=== PATIENT | female | born 1955 | race Caucasian/White ===

== ENCOUNTER 2017-01-19 16:40 | Emergency (ER) | payer OTHER ==
[~2017-01-19] VITALS: Ht 171.4 cm; Wt 59.6 kg
[2017-01-19 16:42] VITALS: Ht 171.4 cm; Wt 59.6 kg
--- NOTE | 2017-01-19 16:43 | NUR ---
PROVIDER DR. CRUZ AT BEDSIDE FOR EXAM.
--- NOTE | 2017-01-19 16:45 | NUR ---
CT PT TO CT BY CART AT THIS TIME.
--- NOTE | 2017-01-19 16:51 | NUR ---
RETURN PT RETURNED FROM CT BY CART AT THIS TIME.
--- NOTE | 2017-01-19 17:01 | DI ---
Indication: ITS.REASON: R arm numbness PROCEDURE: CT HEAD W/O CONTRAST: Encounter: Initial Comparison: None Technique: Axial CT images through the head were performed without contrast. Iterative Reconstruction dose reducing technique was utilized. FINDINGS: The ventricles are of normal size, shape, and contour for the patient's age. There are scattered areas of low attenuation in the white matter which most likely represent changes from chronic microvascular ischemia. The brainstem, cerebellum, and cerebral hemispheres otherwise have a normal morphology and CT attenuation. There is no evidence of midline displacement. No hemorrhage, signs of acute territorial stroke, mass effect, mass lesions, or edema is evident. The visualized portions of the skull base, midface, and calvarium demonstrate no abnormality. The paranasal sinuses are well aerated and free of significant disease. The tympanic and mastoid cavities appear normal. IMPRESSION: No acute intracranial hemorrhage or extended infarct signs. .
--- NOTE | 2017-01-19 17:02 | NUR ---
TELE-NEURO DR. GARRISON TO ASSESS PT AT THIS TIME.
[2017-01-19 17:06] LABS: BASOPHILS % (AUTO) 0.3 % (0-2); EOSINOPHILS # (AUTO) 0.1 T/MM3 (0-0.5); HGB - HEMOGLOBIN 13.7 GM/DL (12-16); IMMATURE GRANULOCYTE # (AUTO) 0.01 T/MM3 (0.00-0.03); IMMATURE GRANULOCYTE % (AUTO) 0.2 % (0.0-0.5); LYMPHOCYTES % (AUTO) 52.5 % (23-45); MEAN CORPUSCULAR HGB CONC(MCHC 35.1 GM/DL (31-37); MEAN CORPUSCULAR VOLUME 88.2 UM3 (80-100); MEAN PLATELET VOLUME 10.3 UM3 (9.4-12.4); MONOCYTES # (AUTO) 0.5 T/MM3 (0-0.8); NEUTROPHILS #(AUTO)-ABSOLUTE 2.1 T/MM3 (1.8-7.7); RED BLOOD COUNT 4.42 M/MM3 (4.00-5.20); WBC - WHITE BLOOD COUNT 5.8 T/MM3 (4.5-11.0)
--- NOTE | 2017-01-19 17:06 | ERPDOC ---
Departure Disposition Decision Date: Jan 19, 2017 Disposition Decision Time: 17:49 Disposition: 07 AGAINST MEDICAL ADVICE Impression Impression Impression: Primary Impression: Tingling of right upper extremity Severity: Mild Condition: Improved Seen By: Physician only Referrals: TRAVIS TUCKER (PCP) [facility] Day Patient Instructions: Paresthesia (ED) Problems/Meds/Labs Reviewed?: Yes Medications reviewed and manag: Yes Follow up care ordered?: Yes Mental Status: Alert, Oriented HPI - General Medical General Chief Complaint: Neuro Symptoms/Deficits Stated Complaint: RIGHT ARM NUMBNESS/THROAT TIGHTNESS Time Seen by Provider: 16:46 Source: patient Exam Limitations: no limitations HPI - General Medical Initial Comments 61-year-old female presents to the emergency department with a chief complaint of tingling in her right arm. Patient denies any pain or discomfort. Patient noted onset of symptoms one hour prior to arrival to the emergency Department. Patient was at home when her symptoms began. Symptoms have improved in nature since onset. At the time of arrival to the emergency department symptoms have virtually resolved. She does not note any exacerbating or remitting factors. No other complaints or associated symptoms. She states she has a history of prior symptoms in the past secondary to anxiety. Occurred At: home Onset: Constant Allergies: Coded Allergies: No Known Allergies (Unverified , 01/19/17) Past History Past Medical History Pt denies signifigant PMH Metabolic: other Surgical History Denies Surgeries General: other Family History Family History: Negative Vaccines Hx Influenza Vaccination: Yes () Hx Pneumococcal Vaccination: No Social History Smoking Status: Never smoker Substance Use Type: does not use Alcohol Intake: none Review of Systems Constitutional Constitutional: DENIES: chills, fever Eyes General: DENIES: erythema, exudate Lids/Accessories: DENIES: erythema, swelling Vision: DENIES: acuity, blurring ENMT Ears: DENIES: drainage, erythema Hearing: DENIES: hearing loss Balance: DENIES: ataxia, falling to one side Sinuses: DENIES: congestion, pain Nose: DENIES: nosebleeds, pain Mouth/Throat: DENIES: painful swallowing, sore throat Teeth: DENIES: pain Jaw: DENIES: pain Cardiovascular Cardiac: DENIES: chest pain, dyspnea on exertion Rhythm/Rate: DENIES: irregular beat, palpitations Vascular: DENIES: pedal edema, unilateral swelling Pulmonary Respiratory: DENIES: cough, dyspnea, pleuritic chest pain, sputum GI Upper Abdomen: DENIES: nausea, pain, vomiting Lower Abdomen: DENIES: diarrhea, pain General: DENIES: dysuria, pain Musculoskeletal General: DENIES: joint pain, pain, tenderness Integumentary Skin: DENIES: itching, rash Neurological General: tingling, DENIES: headache, numbness, weakness Psychiatric Psychiatric: DENIES: emotional instability, suicidal ideation/attempt Endocrine Endocrine: DENIES: polydipsia, polyphagia Hematologic/Lymphatic Hematologic/Lymphatic: DENIES: frequent nosebleeds, lymphadenopathy Allergic/Immunological Allergic/Immunoligical: DENIES: allergic reactions, hives Physical Exam General General Nourishment: well nourished, well developed, appears stated age, no acute distress, adult General Body Habitus: well groomed Vitals and Pain First Documented Vital Signs Date Time Temp Pulse Resp B/P Pulse Ox O2 Delivery O2 Flow Rate FiO2 01/19/17 16:42 97.7 94 18 128/80 98 Room Air Weight: Kilograms: 59.600 Height (feet): 5 Height (inches): 7.50 Triage Pain Scale: RN VS reviewed by Provider: Yes Normal Exams: Head: Normocephalic w/o trauma Eyes: Pupils are PERRLA w/ EOMI, No scleral icterus, irritation, or foreign bodies noted ENMT: No facial trauma, nasal exudates, pharyngeal erythema, or exudates are noted Dental: No fractured, loose, or missing teeth noted Neck: Full range of motion, without adenopathy, JVD, bruits or thyromegaly Chest/Resp: Clear all portillo, with good airflow, and symmetry bilaterally CV: Regular rate and rhythm, without murmur or gallop, Pulses 2+ all extremities, capillary refill, <2 seconds all ext., no pedal edema noted Abdomen: Bowel sounds positive, soft, non-tender, non-distended, no hepatosplenomegaly, masses or bruits noted Lymphatic: No lymphadenopathy, or lymphedema noted Musculoskeletal: No tenderness, or deformity noted, good range of motion, all extremities Integumentary: No rashes, hives, or bruising noted, hair and nails, without abnormality Neurologic: Patient is alert, and oriented, cranial nerves, motor/sensory/ cerebellar, exams w/o gross deficits, to observation Psychiatric: Patient exhibits, appropriate attention, emotion and affect Neurologic (brief) Comments Alert and oriented x 4. CN 2-12. Strength normal. Sensation is intact. Gait normal. Normal motor. Normal coordination. Reflexes 2/4 in all extremities. Absent Babinski bilaterally. Normal gait. No focal neurologic deficit. Differential Diagnoses Considering: CVA, Metabolic, TIA, UTI Progress Results/Orders Orders Procedure Category Date Status Time Ct Head W/O Contrast CT 01/19/17 Resulted 16:46 Cbc W/Auto LAB 01/19/17 Complete Diff-Reflex Manual Cmp - Comprehensive LAB 01/19/17 Complete Metabolic Troponin I W LAB 01/19/17 Complete Hemolysis Index EKG EKG 01/19/17 Taken Chest 1 View RAD 01/19/17 Taken 16:46 Ua, Dip Wreflex LAB 01/19/17 Complete Microsc & Drop Hammer Operator Helper 16:46 INR LAB 01/19/17 Complete PTT LAB 01/19/17 Complete Iv Lock (Ed Only) EDM 01/19/17 Transmitted 17:26 Aspirin (Asa) PHA 01/20/17 Complete 09:00 Lab Results Laboratory Tests Test 01/19/17 16:46 01/19/17 17:00 01/19/17 17:30 Glucometer 96mg/dL White Blood Count 5.8T/MM3 Red Blood Count 4.42M/MM3 Hemoglobin 13.7GM/DL Hematocrit 39.0% Mean Corpuscular Volume 88.2UM3 Mean Corpuscular Hemoglobin 31.0UUG Mean Corpuscular Hemoglobin Concent 35.1GM/DL RDW Standard Deviation 40.1FL Platelet Count 177T/MM3 Mean Platelet Volume 10.3UM3 Immature Granulocyte % (Auto) 0.2% Neutrophils (%) (Auto) 37.0% Lymphocytes (%) (Auto) 52.5% Monocytes (%) (Auto) 9.0% Eosinophils (%) (Auto) 1.0% Basophils (%) (Auto) 0.3% Absolute Immature Granulocyte (auto 0.01T/MM3 Absolute Neutrophils (auto) 2.1T/MM3 Absolute Lymphocytes (auto) 3.0T/MM3 Absolute Monocytes (auto) 0.5T/MM3 Absolute Eosinophils (auto) 0.1T/MM3 Absolute Basophils (auto) 0.0T/MM3 Prothromb Time International Ratio 1.10 Activated Partial Thromboplast Time 30.4SEC Turbidity < 20 Sodium Level 140MEQ/L Potassium Level 4.4MEQ/L Chloride Level 107MEQ/L Carbon Dioxide Level 25MEQ/L Anion Gap 8MEQ/L Blood Urea Nitrogen 18.0MG/DL Creatinine 0.7MG/DL Glomerular Filtration Rate Calc 85 BUN/Creatinine Ratio 26RATIO Glucose Level 101MG/DL Calculated Osmolality 271MOSM/KG Calcium Level 9.6MG/DL Total Bilirubin 0.80MG/DL Icterus Index < 2 Aspartate Amino Transf (AST/SGOT) 32U/L Alanine Aminotransferase (ALT/SGPT) 32U/L Alkaline Phosphatase 82U/L Troponin I < 0.012ng/ml Total Protein 7.1G/DL Albumin 4.4G/DL Globulin 2.7G/DL Albumin/Globulin Ratio 1.6RATIO Chemistry Specimen Hemolysis 56 Urine Collection Type Cleancatch-midstream Urine Color Yellow Urine Turbidity Clear Urine pH 6.0 Urine Specific [place] <=1.005 Urine Protein Negative Urine Glucose (UA) Negative Urine Ketones Negative Urine Blood Negative Urine Nitrite Negative Urine Bilirubin Negative Urine Urobilinogen 0.2EU/DL Urine Leukocyte Esterase Negative Urinalysis Comment Microscopic not ind. Medications Current ED Medications Aspirin (ASA) 324 mg DAILY PO Last administered on 01/19/17t 17:49; Start 01/20 at 09:00; Stop 01/20/17 at 09:00; Status DC Progress Progress Labs/imaging were discussed in detail with the patient and questions are answered. Patient is given 324 mg of aspirin by mouth 1 after an unremarkable head CT is obtained. Patient is recommended to undergo admission to the hospital in observation status for further evaluation and treatment including the stroke workup. Patient declines. Patient requests to follow-up with her physician tomorrow. Patient requested the stroke workup as an outpatient. Patient requests to sign out from the emergency department AGAINST MEDICAL ADVICE. Patient is aware signing out AGAINST MEDICAL ADVICE could result in and/or permanent disability. Patient verbalizes agreement and understanding of this. Patient is alert and oriented 4. She is clinically sober. Patient's family is supportive of her decision. Patient signed the AMA form and leaves the emergency department at this time. Patient is aware that she may return to the emergency department any time if she changes her mind and wishes to be re-evaluated or if her condition worsens or changes in any manner. She is to return if her condition worsens or changes in any manner to the emergency department. She is to follow-up with her primary care physician Dr. Duque or [facility] tomorrow. She is to take a full dose aspirin on a daily basis until instructed otherwise by follow-up physician. Patient is not a TPA candidate due to a low NIH score and rapidly resolving symptoms. She was evaluated by tele-neurology Dr. More. EKG EKG : Rate: 60-100 Rhythm: sinus [place]: normal QRS: normal Intervals: normal ST/T: normal Interpreted by: signing physician Xray Xray : Xray: CXR Portable Interpretation: Normal, Interpreted by Me CT Date CT Interpreted for [place]: Jan 20, [address] Interpreted for Stroke: 16:57 CT : CT: Head no contrast Interpretation: Normal, Reviewed Written Report LEBRON CRUZ DO Jan 19, 2017 17:06
[2017-01-19 17:12] LABS: INR 1.1 (0.76-1.04); PTT 30.4 SEC (24-36)
[2017-01-19 17:16] LABS: ALBUMIN 4.4 G/DL (3.5-5.0); ALBUMIN/GLOBULIN RATIO 1.6 RATIO (1.1-2.2); ALKALINE PHOSPHATASE 82 U/L (38-126); ALT (SGPT) 32 U/L (9-52); ANION GAP 8 MEQ/L (5-15); AST (SGOT) 32 U/L (14-36); BUN/CREATININE RATIO 26 RATIO (6-26); CALCIUM 9.6 MG/DL (8.4-10.2); CHLORIDE 107 MEQ/L (98-107); CO2 - CARBON DIOXIDE 25 MEQ/L (22-30); CREATININE 0.7 MG/DL (0.7-1.2); GLOMERULAR FILTRATION RATE 85; GLUCOSE 101 MG/DL (65-110); POTASSIUM 4.4 MEQ/L (3.6-5); SODIUM 140 MEQ/L (134-144); TOTAL PROTEIN 7.1 G/DL (6.3-8.2)
[2017-01-19] MEDS ORDERED: NO ROUTINE MEDS (17:16)
--- NOTE | 2017-01-19 17:33 | NUR ---
XRAY PORTABLE XRAY AT BEDSIDE.
[2017-01-19 17:39] LABS: BLOOD, URINE NEGATIVE (NEGATIVE); COLOR,URINE YELLOW (YELLOW); LEUKOCYTE ESTERASE ,URINE NEGATIVE (NEGATIVE); NITRITE,URINE NEGATIVE (NEGATIVE); UROBILINOGEN,URINE 0.2 EU/DL (NORMAL)
[2017-01-19 18:04] VITALS: BP 116/68; PULSE 74; RESP 15; TEMP 97.7; O2SAT 97
--- NOTE | 2017-01-19 18:04 | NUR ---
DISCHARGE WRITTEN INSTRUCTIONS REVIEWED AND SENT WITH PT. PT ADVISED TO F/U WITH PCP TOMORROW AND RETURN TO ER WITH RETURNING SYMPTOMS. PT VERBALIZES UNDERSTANDING OF DI, DENIES QUESTIONS. PT AMBULATES OUT OF ER WITH STEADY GAIT ACCOMP BY SPOUSE AT THIS TIME.
--- NOTE | 2017-01-20 07:01 | HPF ---
This is a 61-year-old female who comes in with complaints of numbness of her right arm as well as a swelling sensation of her chest. The patient has never previously had any stroke. The patient does not have any vascular disease. She does not take medications. The patient states that her symptoms are improving. She denies any difficulty with headache, difficulty with visual disturbance or diplopia or weakness of the arm or weakness of the leg on either side. The patient had a noncontrast head CT which was unremarkable. The patient has never had similar symptoms before. The patient does not have a history of headache syndrome. The patient's past medical history is as described. The patient had an NIH stroke scale score completed. She scored a 0 on her NIH stroke scale score. IMPRESSION This is a 61-year-old with minimal vascular risk factors. A TIA is possible in this patient, however unlikely given her absence of risk factors. The patient's other symptoms of throat tightness and other systemic symptoms make it seem that it is more likely that patient is having a panic attack or anxiety of some nature and not suggestive of ischemic infarction. The patient may benefit from MRI of the brain for further clarity. If the MRI of the brain does not result in evidence of ischemic changes, the patient may continue to be worked up as an outpatient. Also, a detailed examination should take place to make sure the sensory symptoms are not peripheral in nature which has been difficult to assess through teleneurology. SHALINI
--- NOTE | 2017-01-20 08:03 | DI ---
Indication: ITS.REASON: R arm numbness PROCEDURE: CHEST 1 VIEW: Encounter: Initial Comparison: June 19, 2011 FINDINGS: The lungs are clear. There is no abnormal airspace opacity, pleural effusion or pneumothorax identified. The heart size, pulmonary vasculature and mediastinum are within normal limits. No significant skeletal abnormality is seen. IMPRESSION: No acute cardiopulmonary abnormality. .
[2017-01-20] MEDS ORDERED: ASPIRIN 81 MG CHEWABLE TABLET PO SCH (09:00)
== END 2017-01-19 18:04 | disposition left against medical advice (07) ==
LOC: ED 16:40
DX: R20.2 Paresthesia of skin (principal); R09.89 Other specified symptoms and signs involving the circulatory and respiratory systems
CPT/HCPCS: 80053; 81003; 82948; 84484; 85025; 85610; 85730; 93005

== ENCOUNTER 2017-02-08 18:25 | Observation (INO) | payer OTHER ==
[~2017-02-08] VITALS: Ht 170.2 cm; Wt 59.2 kg
[~2017-02-08 18:25] MED LIST: NO ROUTINE MEDS
--- OUTSIDE RECORDS SUMMARY | 2017-02-08 18:30 | XMS REPORT | Continuity of Care Document ---
Author Author [facility] Organization [facility] Address Unknown Phone Unavailable Care Team Providers Care Masonry Instructor Name Role Phone HANY MURO DO Primary Care Physician [phone] Insurance Providers Guarantor Debi Mcdonnell Address [address] [place] [address] Email DENIED01-19-17 Payer [facility] Healthcare Policy Number [id number] Subscriber's Name BaldemarDebi Sanz Relationship 18 Self Group Number [id number] Chief Complaint and Reason for Visit Chief Complaint Neuro Symptoms/Deficits Reason for Visit Tingling of right upper extremity Problems Past Problems Medical Problem Onset Date Tingling of right upper extremity Unknown Medications Current Home Medications Medication Dose Units Route Directions Days Qty Instructions Start Date No Routine Meds 01/19/17 Social History Social History Problem Response Recorded Date/Time Onset Date Status Chewing Tobacco Status No 01/19/2017 5:19pm Not Applicable Not Applicable Hx Substance Use No 01/19/2017 5:19pm Not Applicable Not Applicable Hx Alcohol Use No 01/19/2017 5:19pm Not Applicable Not Applicable Query Response Start Date Stop Date Smoking Status Current every day smoker Hospital Discharge Instructions No hospital discharge instructions. Plan of Care Discharge Date 01/19/17 6:04pm Disposition 07 AGAINST MEDICAL ADVICE Condition at Discharge Improved Instructions/Education Provided Paresthesia (ED) Prescriptions See Medication Section Referrals TRAVIS TUCKER Address: [address] [place] [address] Note: [facility] Order Date: 1 Day Care Plan and Goals Physician Care Plan Problem: Tingling RUE Goal: Follow up with primary care provider Instructions: Take medications and follow care plan as discussed/written Functional Status No functional status results. Allergies, Adverse Reactions, Alerts No known allergies. Immunizations Query Response on File Recorded Date/Time Hx Influenza Vaccination Y 06/21/11 7:22am Hx Pneumococcal Vaccination No 06/21/11 7:22am Hx Influenza Vaccination Y 06/21/11 7:22am Influenza Vaccine Hx 08/201601/19/17 5:19pm Vital Signs Acute Vital Signs Vital Response Date/Time Temperature (Fahrenheit) 97.7 deg F (96.8 - 99.1) 01/19/2017 6:04pm Temperature (Calculated Celsius) 36.73723 degrees C (36.0 - 37.3) 01/19/2017 6:04pm Pulse Rate (adult) 74 bpm (60 - 100) 01/19/2017 6:04pm Respiratory Rate 15 breaths/min (10 - 20) 01/19/2017 6:04pm O2 Sat by Pulse Oximetry 97 % (90 - 100) 01/19/2017 6:04pm Blood Pressure 116/68 mm Hg 01/19/2017 6:04pm Height (Feet) 5 feet 01/19/2017 4:42pm Height (Inches) 7.50 inches 01/19/2017 4:42pm Weight (Kilograms) 59.600 kg 01/19/2017 4:42pm Body Mass Index (BMI) 20.0 01/19/2017 4:42pm Results Laboratory Results Test Name Result Units Flags Reference Collection Date/Time Result Date/ Time Comments White Blood Count 5.8 T/MM3 4.5-11.0 01/19/2017 5:00pm 01/19/2017 5: 06pm Red Blood Count 4.42 M/MM3 4.00-5.20 01/19/2017 5:00pm 01/19/2017 5: 06pm Hemoglobin 13.7 GM/DL 12-16 01/19/2017 5:00pm 01/19/2017 5:06pm Hematocrit 39.0 % 36-46 01/19/2017 5:00pm 01/19/2017 5:06pm Mean Corpuscular Volume 88.2 UM3 80-100 01/19/2017 5:00pm 01/19/2017 5: 06pm Mean Corpuscular Hemoglobin 31.0 UUG 26-34 01/19/2017 5:00pm 2016 5:06pm Mean Corpuscular Hemoglobin Concent 35.1 GM/DL 31-37 01/19/2017 5:00pm 01/19/2017 5:06pm RDW Standard Deviation 40.1 FL 36.9-50.2 01/19/2017 5:00pm 01/19/2017 5 :06pm Platelet Count 177 T/MM3 130-400 01/19/2017 5:00pm 01/19/2017 5:06pm Mean Platelet Volume 10.3 UM3 9.4-12.4 01/19/2017 5:00pm 01/19/2017 5: 06pm Neutrophils (%) (Auto) 37.0 % 33-66 01/19/2017 5:00pm 01/19/2017 5: 06pm Lymphocytes (%) (Auto) 52.5 % H 23-45 01/19/2017 5:00pm 01/19/2017 5: 06pm Monocytes (%) (Auto) 9.0 % 0-9.0 01/19/2017 5:00pm 01/19/2017 5:06pm Eosinophils (%) (Auto) 1.0 % 0-4 01/19/2017 5:00pm 01/19/2017 5:06pm Basophils (%) (Auto) 0.3 % 0-2 01/19/2017 5:00pm 01/19/2017 5:06pm Immature Granulocyte % (Auto) 0.2 % 0.0-0.5 01/19/2017 5:00pm 2016 5:06pm Absolute Neutrophils (auto) 2.1 T/MM3 1.8-7.7 01/19/2017 5:00pm 2016 5:06pm Absolute Lymphocytes (auto) 3.0 T/MM3 1-4.8 01/19/2017 5:00pm 2016 5:06pm Absolute Monocytes (auto) 0.5 T/MM3 0-0.8 01/19/2017 5:00pm 01/19/2017 5:06pm Absolute Eosinophils (auto) 0.1 T/MM3 0-0.5 01/19/2017 5:00pm 2016 5:06pm Absolute Basophils (auto) 0.0 T/MM3 0-0.2 01/19/2017 5:00pm 01/19/2017 5:06pm Absolute Immature Granulocyte (auto 0.01 T/MM3 0.00-0.03 01/19/2017 5: 00pm 01/19/2017 5:06pm Prothromb Time International Ratio 1.10 H 0.76-1.04 01/19/2017 5:00pm 01/19/2017 5:12pm THERAPUTIC RANGE=2.00-3.00 FOR ANTI-THROMBOSIS THERAPUTIC RANGE=2.50-3.50 FOR IMPLANTED VALVE Activated Partial Thromboplast Time 30.4 SEC 24-36 01/19/2017 5:00pm 5:12pm Icterus Index < 2 0-7 01/19/2017 5:00pm 01/19/2017 5:16pm Chemistry Specimen Hemolysis 56 H 0-25 01/19/2017 5:00pm 01/19/2017 5: 16pm 26-70: Specimen Exhibited Slight Hemolysis - can falsely elevate K (Potassium) and Urine Protein. Turbidity < 20 0-20 01/19/2017 5:00pm 01/19/2017 5:16pm Sodium Level 140 MEQ/L 134-144 01/19/2017 5:00pm 01/19/2017 5:16pm Potassium Level 4.4 MEQ/L 3.6-5 01/19/2017 5:00pm 01/19/2017 5:16pm Chloride Level 107 MEQ/L 98-107 01/19/2017 5:00pm 01/19/2017 5:16pm Carbon Dioxide Level 25 MEQ/L 22-30 01/19/2017 5:00pm 01/19/2017 5: 16pm Anion Gap 8 MEQ/L 5-15 01/19/2017 5:00pm 01/19/2017 5:16pm Blood Urea Nitrogen 18.0 MG/DL H 7-17 01/19/2017 5:00pm 01/19/2017 5: 16pm Creatinine 0.7 MG/DL 0.7-1.2 01/19/2017 5:00pm 01/19/2017 5:16pm BUN/Creatinine Ratio 26 RATIO 6-26 01/19/2017 5:00pm 01/19/2017 5:16pm Glomerular Filtration Rate Calc 85 01/19/2017 5:00pm 01/19/2017 5: 16pm Glucose Level 101 MG/DL 65-110 01/19/2017 5:00pm 01/19/2017 5:16pm Calculated Osmolality 271 MOSM/KG 261-280 01/19/2017 5:00pm 01/19/2017 5:16pm Calcium Level 9.6 MG/DL 8.4-10.2 01/19/2017 5:00pm 01/19/2017 5:16pm Total Bilirubin 0.80 MG/DL 0.20-1.30 01/19/2017 5:00pm 01/19/2017 5: 16pm Alkaline Phosphatase 82 U/L 38-126 01/19/2017 5:00pm 01/19/2017 5:16pm Total Protein 7.1 G/DL 6.3-8.2 01/19/2017 5:00pm 01/19/2017 5:16pm Albumin 4.4 G/DL 3.5-5.0 01/19/2017 5:00pm 01/19/2017 5:16pm Globulin 2.7 G/DL 2.4-3.6 01/19/2017 5:00pm 01/19/2017 5:16pm Albumin/Globulin Ratio 1.6 RATIO 1.1-2.2 01/19/2017 5:00pm 01/19/2017 5 :16pm Aspartate Amino Transf (AST/SGOT) 32 U/L 14-36 01/19/2017 5:00pm 2016 5:16pm Alanine Aminotransferase (ALT/SGPT) 32 U/L 9-52 01/19/2017 5:00pm 01/19 5:16pm Troponin I < 0.012 ng/ml 0-0.12 01/19/2017 5:00pm 01/19/2017 5:27pm Troponin values with a difference of 55% increase from orginal troponin value represent a true biological DELTA value. (%increase Calc=Orginal Troponin value, divided by subsequent Troponin value, multiplied by 100) Urine Collection Type CLEANCATCH-MIDSTREAM 01/19/2017 5:30pm 2016 5:39pm Urine Color YELLOW YELLOW 01/19/2017 5:30pm 01/19/2017 5:39pm Urine Turbidity CLEAR CLEAR 01/19/2017 5:30pm 01/19/2017 5:39pm Urine Specific [place] <=1.005 L 1.015-1.025 01/19/2017 5:30pm 2016 5:39pm Urine pH 6.0 5.0-8.0 01/19/2017 5:30pm 01/19/2017 5:39pm Urine Leukocyte Esterase NEGATIVE NEGATIVE 01/19/2017 5:30pm 2016 5:39pm Urine Nitrite NEGATIVE NEGATIVE 01/19/2017 5:30pm 01/19/2017 5:39pm Urine Protein NEGATIVE NEGATIVE 01/19/2017 5:30pm 01/19/2017 5:39pm Urine Glucose (UA) NEGATIVE NEGATIVE 01/19/2017 5:30pm 01/19/2017 5: 39pm Urine Ketones NEGATIVE NEGATIVE 01/19/2017 5:30pm 01/19/2017 5:39pm Urine Urobilinogen 0.2 EU/DL NORMAL 01/19/2017 5:30pm 01/19/2017 5: 39pm Urine Bilirubin NEGATIVE NEGATIVE 01/19/2017 5:30pm 01/19/2017 5: 39pm Urine Blood NEGATIVE NEGATIVE 01/19/2017 5:30pm 01/19/2017 5:39pm Urinalysis Comment MICROSCOPIC NOT IND. 01/19/2017 5:30pm 2016 5:39pm Glucometer 96 mg/dL 65-110 01/19/2017 4:46pm 01/19/2017 4:52pm Name: DEBI MCDONNELL Unit #: [id number] : 1955 Sex: F Admit Date: Loc / Svc: ED Discharge Date: DIAGNOSTIC IMAGING REPORT Report #: [id number] [facility] [place] Indication: ITS.REASON: R arm numbness PROCEDURE: CT HEAD W/O CONTRAST: Encounter: Initial Comparison: None Technique: Axial CT images through the head were performed without contrast. Iterative Reconstruction dose reducing technique was utilized. FINDINGS: The ventricles are of normal size, shape, and contour for the patient's age. There are scattered areas of low attenuation in the white matter which most likely represent changes from chronic microvascular ischemia. The brainstem, cerebellum, and cerebral hemispheres otherwise have a normal morphology and CT attenuation. There is no evidence of midline displacement. No hemorrhage, signs of acute territorial stroke, mass effect, mass lesions, or edema is evident. The visualized portions of the skull base, midface, and calvarium demonstrate no abnormality. The paranasal sinuses are well aerated and free of significant disease. The tympanic and mastoid cavities appear normal. IMPRESSION: No acute intracranial hemorrhage or extended infarct signs. . Procedures No known history of procedures. Encounters Encounter Location Arrival/Admit Date Discharge/Depart Date Attending Provider Departed Emergency Room [facility] 01/19/17 4:40pm 01/19/17 6: 04pm LEBRON CRUZ DO Recent Diagnosis
[2017-02-08] MEDS ORDERED: NORMAL SALINE 1,000 ML IV ONE (18:46)
[2017-02-08] MEDS: NITROGLYCERIN 0.4 MG SUBLINGUAL TABLET SL PRN ×2 (18:47→18:52)
--- NOTE | 2017-02-08 18:50 | ERPDOC ---
Departure Disposition Decision Date: Feb 08, 2017 Disposition Decision Time: 19:40 Disposition: 02 TO [place] [facility] [place] Impression Impression: Primary Impression: Paresthesia Severity: Mild Condition: Improved Seen By: Physician only Referrals: HANY MURO DO (PCP) Problems/Meds/Labs Reviewed?: Yes Medications reviewed and manag: Yes Follow up care ordered?: Yes Mental Status: Alert, Oriented HPI - Cardiac General Chief Complaint: Cardiac Complaint Stated Complaint: TINGLING ALL OVER BODY Time Seen by Provider: 18:26 Source: patient, family Exam Limitations: no limitations HPI - Cardiac General Initial Comments 61yo woman presents to the ER tonight with paresthesias. Pt began to have paresthesias several weeks ago. They initially started on her right side. Pt was seen in this ER 3 weeks ago; she was evaluated as a TIA/evolving CVA. Pt was admitted to the hospital for further obs/work up, but left AMA prior to being transferred from the ER. Pt has followed up with her PCM and has further evaluation scheduled for later this week. Today, pts paresthesias became worse than they have been previously, are present across her chest and into both arms , and are accompanied by a globus sensation. Pt takes ibuprofen occasionally, but no other medications. Smokes 1ppd+ for the last 40+ years. Occurred At: home Onset/Timing: Gradual, Getting worse Duration: other Pain/Severity Scale: Now & Worst: 6/10 Severity: moderate Location: substernal Activities at Onset/Context: activity Prior CP/Workup: no prior cardiac workup Modifying Factors: IMPROVES WITH: lying down, nitroglycerin, rest, WORSE WITH: movement Nitro Today/Relief: 0.4 mg x 2, provided by ED Aspirin Today: 81 mg x 4, provided by ED Associated Symptoms: other, shortness of breath, weakness, DENIES: chest pain, cough, diaphoresis, fever/chills, headaches, loss of appetite, malaise, nausea/ vomiting, rash, seizure, syncope Hx of Similar Symptoms: Yes Allergies: Coded Allergies: No Known Allergies (Unverified , 01/19/17) Past History Past Medical History Pt denies signifigant PMH Metabolic: other Surgical History Denies Surgeries General: other Vaccines Hx Influenza Vaccination: Yes () Hx Pneumococcal Vaccination: No Social History Substance Use Type: does not use Alcohol Intake: none Review of Systems ENMT Mouth/Throat: other (globus) Neurological General: tingling All other Systems All Other Systems: Reviewed and Negative Physical Exam General General Nourishment: well nourished, well developed, appears stated age, no acute distress, adult General Body Habitus: well groomed Vitals and Pain First Documented Vital Signs Date Time Temp Pulse Resp B/P Pulse Ox O2 Delivery O2 Flow Rate FiO2 02/08/17 18:26 98.2 99 18 174/85 99 Room Air Weight: Kilograms: Height (feet): 5 Height (inches): 7.50 Triage Pain Scale: RN VS reviewed by Provider: Yes Normal Exams: Head: Normocephalic w/o trauma Eyes: Pupils are PERRLA w/ EOMI, No scleral icterus, irritation ENMT: No facial trauma, nasal exudates, pharyngeal erythema Neck: Full range of motion, without adenopathy, JVD Lymphatic: No lymphadenopathy Musculoskeletal: No tenderness, or deformity noted Integumentary: No rashes, hives, or bruising noted Neurologic: Patient is alert, and oriented Psychiatric: Patient exhibits, appropriate attention Respiratory (brief) Respiratory: FOUND: clear all portillo, equal bilaterally, symmetrical, NOT FOUND : rales, wheezes Cardiovascular (brief) Cardiac: FOUND: regular rate, regular rhythm, NOT FOUND: click, gallop, murmur , pedal edema, peripheral edema, rub Capillary Refill: <2 sec Pulses: all distal extremities, equal, strong Abdomen (brief) Abdominal Brief: FOUND: bowel normo active x4, soft, NOT FOUND: distended, hepatosplenomegaly, pulsatile mass, tender Differential Diagnoses Considering: Acute IN, Anxiety/Panic, Angina, Aortic Dissection, Atrial Fibrillation, CHF, Heart Block, Hyperventilation, Pericarditis, PSVT, Pulmonary Edema, Pulmonary Embolus Progress Results/Orders Orders Procedure Category Date Status Time Cbc W/Auto LAB 02/08/17 Complete Diff-Reflex Manual 18:46 Cmp - Comprehensive LAB 02/08/17 Complete Metabolic 18:46 Probnp LAB 02/08/17 Complete 18:46 Troponin I W LAB 02/08/17 Complete Hemolysis Index 18:46 INR LAB 02/08/17 Complete 18:46 Ethanol LAB 02/08/17 Complete 18:46 Ua, Dip Wreflex LAB 02/08/17 Complete Microsc & Lna 18:46 D-Dimer LAB 02/08/17 Complete 18:46 Tsh - Thyroid Stim LAB 02/08/17 Complete Hormone 18:46 Magnesium LAB 02/08/17 Complete 18:46 EKG EKG 02/08/17 Taken 18:46 Chest 1 View RAD 02/08/17 Taken 18:46 Iv Lock (Ed Only) EDM 02/08/17 Transmitted 18:46 Normal Saline (Normal PHA 02/08/17 Complete Saline Iv) 18:46 Aspirin (Asa) PHA 02/08/17 Complete 19:00 Nitroglycerin PHA 02/08/17 In Process (Nitrostat) 19:00 Place In Facility: ED ADM 02/08/17 Transmitted Lab Results Laboratory Tests Test 02/08/17 18:42 02/08/17 19:13 White Blood Count 5.6T/MM3 Red Blood Count 4.50M/MM3 Hemoglobin 13.7GM/DL Hematocrit 39.6% Mean Corpuscular Volume 88.0UM3 Mean Corpuscular Hemoglobin 30.4UUG Mean Corpuscular Hemoglobin Concent 34.6GM/DL RDW Standard Deviation 40.4FL Platelet Count 186T/MM3 Mean Platelet Volume 10.4UM3 Immature Granulocyte % (Auto) 0.0% Neutrophils (%) (Auto) 51.0% Lymphocytes (%) (Auto) 40.2% Monocytes (%) (Auto) 8.0% Eosinophils (%) (Auto) 0.4% Basophils (%) (Auto) 0.4% Absolute Immature Granulocyte (auto 0.00T/MM3 Absolute Neutrophils (auto) 2.9T/MM3 Absolute Lymphocytes (auto) 2.3T/MM3 Absolute Monocytes (auto) 0.5T/MM3 Absolute Eosinophils (auto) 0.0T/MM3 Absolute Basophils (auto) 0.0T/MM3 Prothromb Time International Ratio 1.06 D-Dimer < 150NG/ML Turbidity < 20 Sodium Level 147MEQ/L Potassium Level 4.2MEQ/L Chloride Level 109MEQ/L Carbon Dioxide Level 24MEQ/L Anion Gap 14MEQ/L Blood Urea Nitrogen 12.0MG/DL Creatinine 0.7MG/DL Glomerular Filtration Rate Calc 85 BUN/Creatinine Ratio 17RATIO Glucose Level 93MG/DL Calculated Osmolality 282MOSM/KG Calcium Level 9.9MG/DL Magnesium Level 2.2MG/DL Total Bilirubin 0.80MG/DL Icterus Index < 2 Aspartate Amino Transf (AST/SGOT) 31U/L Alanine Aminotransferase (ALT/SGPT) 29U/L Alkaline Phosphatase 75U/L Troponin I < 0.012ng/ml DV-Vfq-M-Type Natriuretic Peptide 93PG/ML Total Protein 7.4G/DL Albumin 4.6G/DL Globulin 2.8G/DL Albumin/Globulin Ratio 1.6RATIO Thyroid Stimulating Hormone (TSH) 1.02MIU/L Chemistry Specimen Hemolysis 78 Alcohol, Quantitative <10MG/DL Urine Collection Type Cleancatch-midstream Urine Color Yellow Urine Turbidity Clear Urine pH 5.5 Urine Specific [place] <=1.005 Urine Protein Negative Urine Glucose (UA) Negative Urine Ketones Negative Urine Blood Trace-intact Urine Nitrite Negative Urine Bilirubin Negative Urine Urobilinogen 0.2EU/DL Urine Leukocyte Esterase Trace Urinalysis Comment Microscopic not ind. Medications Current ED Medications Sodium Chloride (Normal Saline IV) 1,000 ml @ 0 mls/hr Q0M ONCE IV Last administered on 02/08/17 19:14; Start 02/08/17 at 18:46; Stop 02/08/17 at 18:47 ; Status DC Aspirin (ASA) 324 mg O ONCE PO Last administered on 02/08/17 18:35; Start at 19:00; Stop 02/08/17 at 19:01; Status DC Nitroglycerin (Nitrostat) 0.4 mg Q5MIN PRN SL CHEST PAIN Last administered on 18:52; Start 02/08/17 at 19:00 EKG EKG : Rate: 60-100 Rhythm: sinus [place]: normal QRS: normal Intervals: normal ST/T: depressed, non-specific changes (ST depression in II, III, aVF, and V4 -5. Borderline pos ST depression (~1mm)) Interpreted by: signing physician Consult/PCP Consult/PCP : Physician Contacted: Ronny Telemed Time Called: 19:31 Time of first response: 19:37 Type of discussion: Phone Consult/PCP Discussion Details Discussed ER course and lab/rad findings to this point. Due to duration of sx, improvement with ACS protocol, and EKG changes, will admit for obs and CP r/o. SCOOTER FUENTES DO Feb 08, 2017 18:50
[2017-02-08 18:53] LABS: BASOPHILS % (AUTO) 0.4 % (0-2); EOSINOPHILS % (AUTO) 0.4 % (0-4); HCT - HEMATOCRIT 39.6 % (36-46); HGB - HEMOGLOBIN 13.7 GM/DL (12-16); LYMPHOCYTES # (AUTO) 2.3 T/MM3 (1-4.8); LYMPHOCYTES % (AUTO) 40.2 % (23-45); MEAN CORPUSCULAR HGB 30.4 UUG (26-34); MEAN CORPUSCULAR HGB CONC(MCHC 34.6 GM/DL (31-37); MEAN PLATELET VOLUME 10.4 UM3 (9.4-12.4); MONOCYTES # (AUTO) 0.5 T/MM3 (0-0.8); NEUTROPHILS #(AUTO)-ABSOLUTE 2.9 T/MM3 (1.8-7.7); WBC - WHITE BLOOD COUNT 5.6 T/MM3 (4.5-11.0)
[2017-02-08 18:57] LABS: INR 1.06 (0.76-1.04); PROTHROMBIN TIME 11.5 SEC (9.31-12.49)
[2017-02-08 18:58] LABS: ALBUMIN 4.6 G/DL (3.5-5.0); ALBUMIN/GLOBULIN RATIO 1.6 RATIO (1.1-2.2); ALKALINE PHOSPHATASE 75 U/L (38-126); ALT (SGPT) 29 U/L (9-52); ANION GAP 14 MEQ/L (5-15); AST (SGOT) 31 U/L (14-36); BUN/CREATININE RATIO 17 RATIO (6-26); CALCIUM 9.9 MG/DL (8.4-10.2); CHLORIDE 109 MEQ/L (98-107); CO2 - CARBON DIOXIDE 24 MEQ/L (22-30); CREATININE 0.7 MG/DL (0.7-1.2); GLOMERULAR FILTRATION RATE 85; GLUCOSE 93 MG/DL (65-110); MAGNESIUM 2.2 MG/DL (1.6-2.3); POTASSIUM 4.2 MEQ/L (3.6-5); SODIUM 147 MEQ/L (134-144); TOTAL PROTEIN 7.4 G/DL (6.3-8.2)
[2017-02-08] MEDS ORDERED: ASPIRIN 81 MG CHEWABLE TABLET PO ONE (19:00)
[2017-02-08 19:02] LABS: ETHANOL <10 MG/DL (<10)
--- NOTE | 2017-02-08 19:03 | NUR ---
PORTABLE XRAY PORTABLE XRAY IN ROOM
[2017-02-08 19:10] LABS: PROBNP 93 PG/ML (0-175)
[2017-02-08 19:26] LABS: BLOOD, URINE TRACE-INTACT (NEGATIVE); COLOR,URINE YELLOW (YELLOW); LEUKOCYTE ESTERASE ,URINE TRACE (NEGATIVE); NITRITE,URINE NEGATIVE (NEGATIVE); UROBILINOGEN,URINE 0.2 EU/DL (NORMAL)
[2017-02-08 19:28] LABS: THYROID STIM HORMONE-TSH 1.02 MIU/L (0.47-4.68)
[2017-02-08] MEDS ORDERED: ONDANSETRON 4mg/2ml INJECTION IV PRN (20:00)
[2017-02-08] MEDS ORDERED: PROMETHAZINE 25 MG INJECTION IV PRN (20:00)
[2017-02-08] MEDS ORDERED: MILK OF MAGNESIA 30 ML SUSP PO PRN (20:00)
[2017-02-08] MEDS ORDERED: MORPHINE SULFATE 2 MG SYRINGE IV PRN (20:00)
[2017-02-08] MEDS ORDERED: METOCLOPRAMIDE 10mg/2ml INJECTION IV PRN (20:00)
--- NOTE | 2017-02-08 20:00 | NUR ---
PLACE IN FACILITY OC, PATIENT TO GO TO ROOM 139, OC RN
--- NOTE | 2017-02-08 20:12 | NUR ---
admit status ambulates from w/c to bed. Denies dizziness as up. States feels like "When your feet or asleep" all over my body from head to toe. Denies pain. Alert and cooperative throughout admission process.
--- NOTE | 2017-02-08 20:12 | NUR ---
DEPART/ADMIT PATIENT TRANSFERRED TO 139. REPORT TO KAMILA RENAE. CARES RELEASED.
[2017-02-08 20:20] VITALS: BP 116/72; PULSE 69; RESP 20; TEMP 96.8; O2SAT 100
[2017-02-08 20:37] VITALS: Ht 170.2 cm; Wt 59.2 kg
--- NOTE | 2017-02-08 21:00 | NUR ---
Dr. Alegre w/ Dr. Leahy per telemed screen. Questions answered, plan of care explained
--- NOTE | 2017-02-08 21:56 | HPPDOC ---
AZ BRIONES MD 02/08/17 2008: HPI - Adult Date DATE: 02/08/17 TIME: 20:04 General Chief Complaint: paresthesias in arm and chest, sensation in neck History of Present Illness Very pleasant 61-year-old female presents to the emergency room with worsening head and neck sensation and paresthesias down both her arms. She has a hard time describing what her symptoms are, she describes something coming over her head, almost a sleepiness, and a fullness in her neck and numbness tingling going down both her arms. She denies any focal weakness on one side or the other. She denies any speech or vision changes. She denies nausea or vomiting. She has been mildly anorexic and she thinks perhaps she's lost 4-5 pounds unintentionally over the past month or so. She presented to the emergency room today because her symptoms were worsening and she was worried. She been seen previously this month in the emergency room , was offered an admission for expedited workup but refused and stated she wanted to follow up with her primary care physician. she says her symptoms have never totally resolved.She did (her PCP is Dr. Dang) who had ordered some tests for this week, sounds like he ordered a mammogram and possibly a CT of her chest (?) However her symptoms increased, and so she did not make those tests yet which were scheduled for tomorrow and Tuesday. In the emergency room was noted that her EKG showed some inferior lateral ST depression, she received an aspirin and nitroglycerin and is feeling a little bit better though her symptoms do still persists somewhat. In the head to toe review of systems of at least 10 points, she notes the weight loss, she's not been eating all that much. She does have some night sweats but that's been going on a long time and she thinks that's from menopause. She says she wakes up a lot, but doesn't think that she snores, loose diarrheas told her that. She denies depression or anxiety. She occasionally has some shortness of breath and dyspnea on exertion but denies chest pain. She denies any black or bloody stools. She had colonoscopy 3-4 years ago had a polyp, this was repeated 2 years ago and was clear. Her mammogram is a bit out of date and an update was scheduled for tomorrow. 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 She actually feels quite happy since her long-term and would feel a lot happier if she just didn't feel so tired and with these symptoms. Past Medical History Past Medical History tobacco abuse HTN Surgical History Patient's Surgical History: She had a history kidney stone that required lithotripsy, she has bilateral breast implants. Denies other surgery. Current Medications Home Meds Reported Medications [No Routine Meds] No Conflict Check 01/19/17 Allergies: Coded Allergies: No Known Allergies (Unverified , 01/19/17) Family History Family History: Her father at age 78 from heart attack, her mother is alive at age 82 and has a history of stroke, her sister from breast cancer 3 years ago, she was 56 Social History Smoking Status: Current every day smoker ( has smoked a pack a day since her college years, about [id number] history.) Substance Use Type: does not use Alcohol Intake: none Marital Status: Household Members: spouse Current Occupational Status: retired Review of Systems All Other Systems All Other Systems: Reviewed (remainder of 10-point ROS Neg x as per HPI) Physical Exam General General Nourishment: well nourished, well developed Vital Signs Vital Signs Date Time Temp Pulse Resp B/P Pulse Ox O2 Delivery O2 Flow Rate FiO2 02/08/17 18:26 98.2 99 18 174/85 99 Room Air Height (Feet): 5 Height (Inches): 7.00 Eyes Brief: FOUND: EOMI, PERRL, NOT FOUND: scleral icterus Respiratory Brief: FOUND: clear all portillo Cardiovascular (brief) Cardiac Brief: FOUND: regular rate, regular rhythm, NOT FOUND: pedal edema Abdomen (brief) Abdominal Brief: FOUND: BS normo active x4, soft, NOT FOUND: distended, tender Musculoskeletal (brief) Musculoskeletal Brief: NOT FOUND: spasm, tenderness Integumentary (brief) Integumentary Brief: FOUND: dry, pink, warm, NOT FOUND: rash Neurologic (brief) Neurological Brief: FOUND: cranial 2-12 intact, motor, NOT FOUND: facial droop , ptosis Neurologic RN Documented GCS Eye Opening: Verbal: Motor: Total: Psychiatric (brief) FOUND: alert, attentive, normal affect, oriented Laboratory Laboratory Tests Test 4/18/17 18:42 02/08/17 19:13 White Blood Count 5.6T/MM3 Red Blood Count 4.50M/MM3 Hemoglobin 13.7GM/DL Hematocrit 39.6% Mean Corpuscular Volume 88.0UM3 Mean Corpuscular Hemoglobin 30.4UUG Mean Corpuscular Hemoglobin Concent 34.6GM/DL RDW Standard Deviation 40.4FL Platelet Count 186T/MM3 Mean Platelet Volume 10.4UM3 Immature Granulocyte % (Auto) 0.0% Neutrophils (%) (Auto) 51.0% Lymphocytes (%) (Auto) 40.2% Monocytes (%) (Auto) 8.0% Eosinophils (%) (Auto) 0.4% Basophils (%) (Auto) 0.4% Absolute Immature Granulocyte (auto 0.00T/MM3 Absolute Neutrophils (auto) 2.9T/MM3 Absolute Lymphocytes (auto) 2.3T/MM3 Absolute Monocytes (auto) 0.5T/MM3 Absolute Eosinophils (auto) 0.0T/MM3 Absolute Basophils (auto) 0.0T/MM3 Prothromb Time International Ratio 1.06 D-Dimer < 150NG/ML Turbidity < 20 Sodium Level 147MEQ/L Potassium Level 4.2MEQ/L Chloride Level 109MEQ/L Carbon Dioxide Level 24MEQ/L Anion Gap 14MEQ/L Blood Urea Nitrogen 12.0MG/DL Creatinine 0.7MG/DL Glomerular Filtration Rate Calc 85 BUN/Creatinine Ratio 17RATIO Glucose Level 93MG/DL Calculated Osmolality 282MOSM/KG Calcium Level 9.9MG/DL Magnesium Level 2.2MG/DL Total Bilirubin 0.80MG/DL Icterus Index < 2 Aspartate Amino Transf (AST/SGOT) 31U/L Alanine Aminotransferase (ALT/SGPT) 29U/L Alkaline Phosphatase 75U/L Troponin I < 0.012ng/ml IS-Fcf-H-Type Natriuretic Peptide 93PG/ML Total Protein 7.4G/DL Albumin 4.6G/DL Globulin 2.8G/DL Albumin/Globulin Ratio 1.6RATIO Thyroid Stimulating Hormone (TSH) 1.02MIU/L Chemistry Specimen Hemolysis 78 Alcohol, Quantitative <10MG/DL Urine Collection Type Cleancatch-midstream Urine Color Yellow Urine Turbidity Clear Urine pH 5.5 Urine Specific [place] <=1.005 Urine Protein Negative Urine Glucose (UA) Negative Urine Ketones Negative Urine Blood Trace-intact Urine Nitrite Negative Urine Bilirubin Negative Urine Urobilinogen 0.2EU/DL Urine Leukocyte Esterase Trace Urinalysis Comment Microscopic not ind. EKG Normal sinus rhythm and normal rate. Perhaps very minimal ST depression in leads 2 3 aVF. I think this appears similar to her previous EKG in December. Radiology Chest x-ray is without infiltrate, she has mildly hyperexpanded lungs, normal cardiac silhouette. Formal interpretation is pending. Assessment & Plan Problems: (1) Paresthesia Status: Acute Assessment & Plan: Her symptoms have spends a few weeks to several weeks, relatively nonspecific. EKG is minimally abnormal. Her cardiac enzymes are persistently negative. She was hypertensive at admission and she does feel better after some nitroglycerin and her blood pressure now in the normal range. I think is reasonable to do a stress test to rule out atypical cardiac symptoms. We'll start with that test, and I've ordered some basic inflammatory labs and an AISHA to rule out underlying possible rheumatic disease. I doubt that this is depression or anxiety related, I considered ordering further tests to rule out TIA or stroke, but I'm not convinced that her symptoms are like that. They're more generalized and nonfocal. I think it may be helpful to touch base with her primary care physician regarding his testing that he ordered and his history obtained. (2) Fatigue (3) Hypertension Status: Acute Assessment & Plan: probably starting some sort of antihypertensive upon discharge would be reasonable. (4) Tobacco dependence syndrome Status: Chronic Assessment & Plan: Encouraged her to quit, this very well could be related to her symptoms, hopefully not by some occult oncologic process. (5) Globus sensation Assessment & Plan: Could be GERD, gallbladder disease, or other. We'll rule out cardiac issues first and then can proceed thereon less urgent basis perhaps Code Status Full Code Hospital Course Summary Disclaimer The hospital course summary below is not to be considered part of the above Progress Note. AVELINO SHEPPARD MD 02/09/17 1333: Past Medical History Current Medications Home Meds Reported Medications [No Routine Meds] No Conflict Check 01/19/17 Allergies: Coded Allergies: No Known Allergies (Unverified , 01/19/17) Assessment & Plan Plan/Intensity of Service Have independently interviewed and examined pt. Chart reviewed. Above note reviewed and concur. CC: Paresthesia HPI: Hard to explain symptoms she is feeling. Everything feels numb and tingling. Feels like this sensation is taking over her body. Breathing becomes more hard and rapid-rapid breathing worsens sensations and then feels like it is the end. Does become panicky when gets severe. Nothing seams to bring the sensation on-comes out of blue. Not dizzy. No visual or hearing changes. No SCHULZ. Can't say she is having palpitations. Does note increased allergies and nasal congestion. No f/c. No diarrhea. Appetite stable. PMHx Tobacco dependency, Hx kidney stones, Hx tubal ligation, Hx breast implant Meds/allergies reviewed. SHx: recently retired. Smokes. . Established with Dr Duque. FHx: Sister with lung CA-Had breast CA. Father of [place]. Mother living ROS: As above. Gen: no f/c. Notes fatigue. HEENT: Sinus congestion. Lungs: cough from smoking. No pain with breathing. CV: no palpitations. GI: Appetite stable. NO n/v/d. 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 Remainder of 10 point ROS negative. Exam GEN: [id number] A&O Converses well HEENT: NC/AT PERRLA EOMI MMM Neck: midline, supple Lungs: clear bilaterally. No crackles, wheezes, distress CV: regular AB: soft nt/nd +BS EXT: No edema. No cyanosis. Neuro: CN II-XII intact, no focal motor deficits Psych: awake, alert, oriented, appropriate SKIN: warm and dry. No rashes. Lab: Noted Imaging: noted Assessment: as above Plan: OBS, MRI brain to exclude cerebral pathology. Neuro consult for evaluation. RT for tobacco cessation. Lorazepam 0.5mg prn severe anxiety symptoms. Case discussed with neuro - feels symptoms likely due to pt's low BP. Recommends plenty of fluids and sport drink. Start Florinef 0.1mg daily. AZ BRIONES MD Feb 08, 2017 20:08 AVELINO SHEPPARD MD Feb 09, 2017 13:33
--- NOTE | 2017-02-08 22:00 | NUR ---
intake takes snack, denies abdominal pain or nausea
[2017-02-09] VITALS (7 sets, daily range): BP systolic 87–124; BP diastolic 60–77; PULSE 53–74; RESP 16–20; TEMP 96.6–97.9; O2SAT 96–99
--- NOTE | 2017-02-09 05:41 | NUR ---
rest sleeps for long intervals, resp. easy. Repositions self. Awakens easily. Denies chest pain or pressure. Tele indicates SB/SR all night
[2017-02-09 06:27] LABS: C-REACTIVE PROTEIN < 5.0 MG/L (0-9)
--- NOTE | 2017-02-09 08:15 | DI ---
Indication: ITS.REASON: Upper chest pain PROCEDURE: CHEST 1 VIEW: Encounter: Initial Comparison: January 19, 2017 FINDINGS: The lungs are clear. There is no abnormal airspace opacity, pleural effusion or pneumothorax identified. The heart size, pulmonary vasculature and mediastinum are within normal limits. No significant skeletal abnormality is seen. IMPRESSION: No acute cardiopulmonary abnormality. .
[2017-02-09] MEDS ORDERED: SALINE FLUSH 10ml SYRINGE ONE (10:46)
[2017-02-09] MEDS ORDERED: GADOBUTROL 10mMol/10ml INJECTION IV ONE (10:46)
--- NOTE | 2017-02-09 11:33 | DI ---
Indication: ITS.REASON: Paresthesias PROCEDURE: MRI BRAIN W/WO CONTRAST: Encounter: Initial Comparisons: Head CT dated January 19, 2017 Technique: Multiplanar, multisequence, MR imaging of the head with and without contrast was acquired. Contrast: 5.5 mL of Gadavist FINDINGS: The ventricles are of normal size, shape, and contour for the patient's age. The brain stem, cerebellum, and cerebral hemispheres have a normal morphologic appearance as well as MR signal intensity on all pulse sequences. Following intravenous administration of contrast, no areas of abnormal enhancement are evident. There are no areas of restricted diffusion to suggest an acute infarct. There is no evidence of an intracranial mass lesion, intracranial hemorrhage, or hydrocephalus. The visualized portions of the orbits, calvarium, paranasal sinuses, and skull base demonstrate no significant abnormality. IMPRESSION: Unremarkable MRI of the head for the patient's age with and without contrast. .
[2017-02-09] MEDS ORDERED: FLUDROCORTISONE 0.1 MG TABLET PO SCH (12:00)
--- NOTE | 2017-02-09 12:02 | DI ---
Indication: ITS.REASON: Paresthesias PROCEDURE: US CAROTID DOPP COMPLETE: TECHNIQUE: Grayscale, color and duplex Doppler imaging was performed of the carotid systems bilaterally. Velocities in cm/sec - validated velocity measurements with angiographic measurements, velocity criteria are extrapolated from diameter data as defined by the Society of Radiologists in Ultrasound Consensus Conference Radiology 2003; 229;340-346. RIGHT: PSV ICA 114 EDV ICA 37 PSV CCA 89 EDV CCA 21 SVR 1.3 PSV ECA 101 ICA Diameter reduction 20%-40% (1.2-1.4 [id number])% LEFT: PSV ICA 119 EDV ICA 47 PSV CCA 87 EDV CCA 22 SVR 1.4 PSV ECA 100 ICA Diameter reduction 20%-40% (1.2-1.4 [id number])% The right vertebral artery is patent with cephalic flow. The left vertebral artery is patent with cephalic flow. Very minimal plaque in the carotid bulbs. IMPRESSION: No hemodynamically significant carotid stenosis. .
--- NOTE | 2017-02-09 12:54 | CONSF ---
DATE OF CONSULTATION 02/09/[address] Brown PATIENT'S CHIEF COMPLAINT Paresthesia in the arms and heaviness of the head. HISTORY OF PRESENT ILLNESS Patient is a 61 year-old female with no significant past medical history. Patient presented with several episodes of insidious onset heaviness of the head, choking feeling, and pressure sensation followed by numbness and tingling in the arms. The patient has had no particular precipitant for her symptoms. She tends to become anxious afterwards. She described breathing fast and having mild tachycardia. Her symptoms tend to last for several hours each time and they have been spontaneously recovering with some rest. The patient presented to the ER twice in the past month with similar symptoms. She was admitted yesterday to [facility]. She had an MRI of the brain that was unremarkable. Her lab showed signs of mild dehydration. The patient has been cachectic with significant low weight. Her blood pressure has been fluctuating in the lower range of normal. She has had blood pressure as low as 87/60 during her admission. The patient takes no medication at home. She denies having any painful feeling in the head and she did not ask for any pain medication recently. PHYSICAL EXAMINATION On physical examination, the patient was awake, alert, oriented x3. Pupils were round, reactive and equal. Extraocular muscles were intact. Visual portillo were full. Motor examination was 5/5 in all extremities. Sensory was normal to pinprick, light touch, and temperature sensation. The vibration sensation in the toes and fingers were normal. Deep tendon reflexes were 2/4. Plantar reflexes were downgoing bilaterally. Coordination for [id number] were normal bilaterally. ASSESSMENT 1. Recurrent episode of diffuse heaviness in the head associated with a choking feeling and traveling paresthesia in the arms. This is highly suspicious for hypotension exacerbated by dehydration and low calorie intake. 2. No evidence of stroke or peripheral neuropathy on the history and examination. PLAN 1. Support blood pressure by adding Florinef 0.1 mg p.o. q.d. 2. Provide good fluid intake and add Gatorade to each meal. 3. Improve calorie intake and physical therapy. 4. Consider an EMG and NCT if having more prolonged numbness and tingling in the extremities. This can be done as an outpatient. SHALINI
[2017-02-09] MEDS ORDERED: LORAZEPAM 0.5 MG TABLET PO PRN (13:45)
--- NOTE | 2017-02-09 14:00 | NUR ---
STATUS PT DID NOT HAVE NO CHANGES FROM ASSESSMENT THIS A.M. PT ALERT AND ORIENTED X3. VITALS STABLE CHARTED. PT DENIED ANY CHEST PAIN.
--- NOTE | 2017-02-09 14:20 | NUR ---
CM CM IN TO VISIT PT. CM EXPLAINS ROLE AND PROVIDES CONTACT INFORMATION. PT DENIES HOME NEEDS. PT AWARE TO CONTACT CM SHOULD NEEDS ARISE.
[2017-02-09] MEDS ORDERED: FLUD0.1T PO (14:55)
[2017-02-09] MEDS ORDERED: LORA0.5T86 PO (14:55)
--- NOTE | 2017-02-09 15:57 | NUR ---
DISCHARGE DISCHARGE INSTRUCTIONS WERE EXPLAINED TO PT. DISCHARGE INSTRUCTION PACKAGE SENT WITH PT. PRESCRIPTIONS X2 WERE GIVEN TO PT. IV LOCK AND TELEMETRY WERE D/C. ID BAND REMOVED. PT AMBULATED OUT WITH STAFF MEMBER.
--- NOTE | 2017-02-10 14:23 | DSF ---
Date of initiation of observation 02/08/2017. Date of discharge 02/09/2017 ADMISSION DIAGNOSIS Paresthesia. DISCHARGE DIAGNOSIS Paresthesias - improved. ASSOCIATED CONDITIONS .AND COMPLICATIONS Globus sensation. Fatigue. Elevated blood pressure. Tobacco dependency syndrome. CONSULTS Dr. Mary - Neurology. RT for tobacco cessation PROCEDURES MRI of brain - Unremarkable MRI with and without contrast. Carotid Dopplers: No hemodynamically significant carotid stenosis. CLINICAL RESUME Jenna Mcdermott is a 61-year-old female who presents to [facility] Emergency Room secondary to paresthesias in arm and chest and a sensation in her neck. She has a very hard time describing what her symptoms are. At times she feels like there is something coming out of her head, almost a sleepiness. She has fullness in her neck and numbness going down both her arms. She denies focal weakness on one side or the other. She denies any speech or vision change. She has not had nausea or vomiting. She does note she has been mildly anorexic. She feels she maybe has lost 4-5 pounds unintentionally over the past month or so. She had previously presented to emergency room on January 19 with similar symptoms. At that time she did undergo CT scan of brain which was unremarkable for hemorrhage or extended infarct signs. She was evaluated by teleneurology and while they did feel a TIA was possible they thought it was less likely given absence of other risk factors. They felt potentially her symptoms were more of a panic attacks or anxiety. They did feel MRI would be beneficial to exclude occult process. At that time outpatient observation was offered to the patient, but she declined politely. She did follow with Dr. Duque and it sounds as if she was in the process of having some of this worked up. She does re-present on the evening of the secondary to more dramatic symptoms. Her paresthesias were more pronounced and she had worsening globus sensation. She started to become more panicky as she fell she could not catch her breath. In light of her symptoms, hospitalist service was contacted and patient was subsequently placed in outpatient observation for further evaluation and treatment. For complete details of the H&P refer to that document. LABORATORY White blood count is 5.6 with hemoglobin 13.7, hematocrit 39.6, MCV 88.0 and platelets 186,000. Serum sodium is 147, potassium 4.2, chloride 109, CO2 24, BUN 12 with creatinine 0.7, GFR 85 and blood glucose 93. Transaminases are unremarkable. Troponin I is less than 0.012. C-reactive protein was less than 5. TSH is normal at 1.02. D-dimer is less than 150 with INR 1.06. UA is remarkable for low specific gravity less than or equal to 1.005 with trace blood and trace leukocyte esterase. Quantitative alcohol was undetectable. AISHA and ESR are pending at time of discharge. HOSPITAL COURSE The patient was placed in outpatient observation status at [facility] under the hospitalist service. Blood sugars were monitored to exclude hypoglycemia as cause of her symptoms. Initially she was made n.p.o. for possible cardiac stress testing (Had been scheduled for stress testing on the .) Unfortunately, stress testing was unable to be performed during the hospitalization. We did have Reglan, Zofran and Phenergan available as needed for nausea. Morphine was made available as needed for pain. We did consult with Dr. Mary for neurological evaluation. MRI of brain was obtained with no significant findings. Doppler studies of neck showed no significant rate limiting stenosis. Initially she was hypertensive in emergency room with blood pressures in the 180s. Without treatment, her blood pressure did spontaneously decrease, and did get as low as 99/69. The patient does report she has a longstanding history of "low blood pressures." With Dr. Mary's evaluation, did not find any evidence of focal neurological deficit. He wondered if perhaps some of her symptoms were indeed related to hypotension. He recommended supporting blood pressure by good fluid intake and also use of Gatorade or sport drink. He also fell Florinef 0.1 mg daily would be reasonable. With her symptoms. she would develop a significant amount of panic. He did not feel panic attack or panic disorder was the underlying etiology of her troubles. We did have lorazepam 0.5 mg available as needed. The patient did not feel she needed this medication during the hospitalization. We did discuss about use of this medication, potential side effects including sleepiness, somnolence and lowering blood pressure. Additionally, advised potential for dependency and abuse with this medication. I do feel it would be reasonable for her to have lorazepam available, especially if her symptoms get quite severe. By time of discharge, though, she was doing quite well. She was eating and drinking without limitation. Blood pressure was stable. She was maintaining saturations of 99% on room air. She expressed a strong desire for discharge to home and we felt this was quite reasonable. She was able to be discharged to home in stable condition. Narrative disclaimer: Above narrative is a brief summary of the patient's hospitalization; for complete details of hospital course, refer to the medical record. DISCHARGE CONDITION Stable/good. DIET Regular, plenty of fluids. ACTIVITIES As tolerated. MEDICATIONS Florinef 0.1 mg p.o. daily to help increase blood pressure. Lorazepam 0.5 mg q.4h. p.r.n. severe anxiety. FOLLOWUP Dr. Duque in one week. INSTRUCTION TO PATIENT The patient was instructed on her diagnosis and treatments provided. We discussed findings of her MRI and Doppler of neck. We did encourage her to work to become a nonsmoker. We discussed about use of Florinef to help augment blood pressure. Encouraged her on plenty of fluid and liquid intake to maintain hydration. Additionally, encouraged her on routine protein intake to help minimize potential for hypoglycemia. Advised she may use lorazepam as needed for severe anxiety symptoms, counseling patient on potential side effects. She will watch for temperature elevation greater than 104.4 or worsening neurological changes. Should these or other symptoms occur, she would be in contact with Dr. Duque. If symptoms become quite dire she can present to emergency room for acute evaluation. She voiced understanding of the above. Time spent with discharge greater than 30 minutes. SHALINI
== END 2017-02-09 15:57 | disposition home or self-care (01) ==
LOC: ED 18:25 → EDHOLD 19:47 → MED 20:12
PROVIDERS: ADMIT Pediatrics; ATTEND Hospitalist
DX: R20.2 Paresthesia of skin (principal); R20.0 Anesthesia of skin; R53.83 Other fatigue; I10 Essential (primary) hypertension; F17.210 Nicotine dependence, cigarettes, uncomplicated; R63.0 Anorexia; Z68.20 Body mass index [BMI] 20.0-20.9, adult; Z87.442 Personal history of urinary calculi; I65.23 Occlusion and stenosis of bilateral carotid arteries; Z82.3 Family history of stroke; Z82.49 Family history of ischemic heart disease and other diseases of the circulatory system
CPT/HCPCS: 36415; 70553; 71010; 80053; 80307; 81003; 82948; 83735; 83880; 84443; 84484; 85025; 85379; 85610; 85652; 86038; 86140; 93005; 93880; 96360; 99218; 99284; 99406; A9585; J7030

== ENCOUNTER → 2017-02-15 | Outpatient (CLI) | payer OTHER ==
[~2017-02-15] MED LIST changes: +FLUD0.1T PO; +LORA0.5T86 PO
== END ==
LOC: WC.BC 15:47
DX: Z12.31 Encounter for screening mammogram for malignant neoplasm of breast (principal); Z98.82 Breast implant status; Z80.3 Family history of malignant neoplasm of breast
CPT/HCPCS: 77063; G0202